=== PATIENT | male | born 1945 | race African-American/Black ===

== ENCOUNTER 2023-09-30 12:36 | Emergency (ER) | payer OTHER, MEDICAID ==
[~2023-09-30] VITALS: Ht 175.3 cm; Wt 90.7 kg
[2023-09-30 13:15] VITALS: BP 157/85; PULSE 64; RESP 18; TEMP 98; O2SAT 98
[2023-09-30 14:00] VITALS: O2SAT 99
[2023-09-30 15:03] LABS: HEMATOCRIT 34.7 % (36-52); HEMOGLOBIN 11.6 g/dL (12.0-18.0); MEAN CORPUSCULAR HEMOGLOBIN 27 pg (27-31); MEAN CORPUSCULAR HGB CONC 34 g/dL (33-37); MEAN CORPUSCULAR VOLUME 79.8 fL (80-94); PLATELET COUNT (AUTO) 34 K/uL (140-450); RED BLOOD CELL COUNT(AUTO) 4.35 MIL/uL (4.20-6.10); RED CELL DISTRIBUTION WIDTH 15.7 % (11.6-13.7)
[2023-09-30 15:10] LABS: INR 1.37 (0.8-1.2); PROTHROMBIN TIME 14.2 secs (10.8-13.4)
[2023-09-30 15:23] LABS: LYMPHOCYTES % (MANUAL) 21 % (20-46); MONOCYTES % (MANUAL) 34 % (5-12); PLATELET ESTIMATE DECREASED
[2023-09-30 15:39] LABS: ANION GAP 8.7 (8-16); CALCIUM 8.4 mg/dL (8.5-10.1); CARBON DIOXIDE 24.5 mmol/L (21-32); CHLORIDE 104 mmol/L (98-107); GLUCOSE 104 mg/dL (74-106); POTASSIUM 4.2 mmol/L (3.5-5.1); SODIUM SERUM 133 mmol/L (136-145); UREA NITROGEN, BLOOD 15 mg/dL (7-18)
[2023-09-30 17:47] VITALS: BP 157/89; PULSE 67; RESP 19; TEMP 98; O2SAT 99
== END 2023-09-30 17:47 | disposition home or self-care (01) ==
LOC: MED 12:36
DX: D69.6 Thrombocytopenia, unspecified (principal); D64.9 Anemia, unspecified; J44.9 Chronic obstructive pulmonary disease, unspecified; I10 Essential (primary) hypertension; F20.9 Schizophrenia, unspecified
CPT/HCPCS: 36415; 80048; 85025; 85610; 86886; 86900; 86901; 99283

== ENCOUNTER 2024-05-10 12:44 | Inpatient (IN) | payer OTHER, MEDICAID ==
[~2024-05-10] VITALS: Ht 180.3 cm; Wt 88.0 kg
[2024-05-10 12:48] VITALS: BP 158/76; PULSE 51; RESP 15; TEMP 97; O2SAT 96
--- NOTE | 2024-05-10 12:48 | NUR ---
PT BIBA TO BED 1. DR MONTAGUE PT
--- NOTE | 2024-05-10 13:38 | NUR ---
CONTINUEATION OF CARE AT THIS POINT, REPORT RECEIVED FROM GOYO GRIFFIN.
--- NOTE | 2024-05-10 13:39 | NUR ---
79YO M COTY FROM [facility] FOR EVALUATION OF BILATERAL LEG SWELLING X 3DAYS. PT STATES HE PLACED A BANDAGE TO LEFT LOWER LEG AND WORSENED W/DRAINAGE LAST NIGHT. DR MONTAGUE SENT PT FOR EVAL. PT DENIES FEVER, CHILLS, N, V, D, SOB, CP, URINARY SYMPTOMS. AOX4, AMBULATES WITH CANE, VSS, HR 51, BILAT LUNG CLR, OPEN SORE TO LEFT LOWER LEG/FOOT. NAD, SAFETY MAINTAINED, CALL LIGHT IN REACH. HX: HTN NKA Addendum: 05/10/24 at 1450 by [email or web address] HX: HTN, COPD, SCHIZOPHRENIA, ANEMIA
[2024-05-10 13:45] VITALS: O2SAT 99
[2024-05-10] MEDS ORDERED: ceFAZolin 1,000 MG VIAL ONE (14:02)
[2024-05-10 14:03] LABS: HEMATOCRIT 33.7 % (36-52); HEMOGLOBIN 11.1 g/dL (12.0-18.0); MEAN CORPUSCULAR HEMOGLOBIN 27 pg (27-31); MEAN CORPUSCULAR HGB CONC 33 g/dL (33-37); MEAN CORPUSCULAR VOLUME 82.7 fL (80-94); PLATELET COUNT (AUTO) 36 K/uL (140-450); RED BLOOD CELL COUNT(AUTO) 4.08 MIL/uL (4.20-6.10); RED CELL DISTRIBUTION WIDTH 17.1 % (11.6-13.7); WHITE BLOOD COUNT (AUTO) 9.4 K/uL (4.8-10.8)
[2024-05-10 14:11] LABS: ANION GAP 11.4 (8-16); CHLORIDE 103 mmol/L (98-107); GLUCOSE 114 mg/dL (74-106); POTASSIUM 4.4 mmol/L (3.5-5.1); SODIUM SERUM 133 mmol/L (136-145); UREA NITROGEN, BLOOD 20 mg/dL (7-18)
[2024-05-10 14:18] LABS: INR 1.3 (0.8-1.2); PARTIAL THROMBOPLASTIN TIME 29.8 secs (22-35.6); PROTHROMBIN TIME 13.4 secs (10.8-13.4)
--- NOTE | 2024-05-10 14:18 | NUR ---
X-RAY AT BEDSIDE
[2024-05-10 14:19] LABS: LACTIC ACID 1.8 mmol/L (0.4-2.0)
[2024-05-10 14:20] LABS: ALANINE AMINOTRANSFERASE 60 U/L (12-78); ALBUMIN 2.7 g/dL (3.4-5.0); ALKALINE PHOSPHATASE 102 U/L (50-136); ASPARTATE AMINOTRANSFERASE 64 U/L (15-37); BILIRUBIN,DIRECT 0.8 mg/dL (0.0-0.3); TOTAL BILIRUBIN 1.3 mg/dL (0.0-1.0); TOTAL PROTEIN, SERUM 7.5 g/dL (6.4-8.2)
[2024-05-10 14:33] LABS: LYMPHOCYTES % (MANUAL) 20 % (20-46); METAMYELOCYTES % 2 % (0-0); MONOCYTES % (MANUAL) 18 % (5-12); PLATELET ESTIMATE DECREASED
[2024-05-10 14:34] LABS: ANISOCYTOSIS 1+; OVALOCYTES 1+; POIKILOCYTOSIS 1+; TARGET CELLS 1+; TEAR DROP CELLS 1+
[2024-05-10 15:23] LABS: APPEARANCE,URINE CLEAR (CLEAR); BILIRUBIN,URINE NEGATIVE (NEGATIVE); BLOOD, URINE NEGATIVE (NEGATIVE); COLOR,URINE YELLOW (YELLOW); LEUKOCYTE ESTERASE ,URINE NEGATIVE (NEGATIVE); NITRITE, URINE NEGATIVE (NEGATIVE); PROTEIN,URINE NEGATIVE (NEGATIVE); UGLUCOSE NEGATIVE (NEGATIVE)
[2024-05-10] MEDS ORDERED: HYDROcodone/APAP 7.5/325 MG 1 TAB PO PRN (15:50)
[2024-05-10] MEDS ORDERED: VANCOMYCIN PER PHARMACY MC PRN (15:50)
[2024-05-10] MEDS ORDERED: ONDANSETRON 4 MG/2 ML VIAL IVP PRN (15:50)
[2024-05-10] MEDS ORDERED: ACETAMINOPHEN 325 MG TAB PO PRN (15:50)
[2024-05-10] MEDS ORDERED: POTASSIUM CHLORIDE 10 MEQ TABER PO PRN (15:50)
[2024-05-10] MEDS ORDERED: IBUP-2217 PO (15:52)
[2024-05-10] MEDS ORDERED: DOCU-3 PO (15:52)
[2024-05-10] MEDS ORDERED: GEMF-65 PO (15:52)
[2024-05-10] MEDS ORDERED: ARIP15TA43 PO (15:52)
[2024-05-10] MEDS ORDERED: ATEN50TA2 PO (15:52)
[2024-05-10] MEDS ORDERED: OMEP40EC23 PO (15:52)
[2024-05-10] MEDS ORDERED: FERR325E14 PO (15:52)
[2024-05-10] MEDS ORDERED: FURO20TA8 PO (15:52)
[2024-05-10] MEDS ORDERED: AMLO-3 PO (15:52)
[2024-05-10] MEDS ORDERED: MELO-176 PO (15:52)
[2024-05-10] MEDS ORDERED: ESCI5TAB18 PO (15:52)
[2024-05-10] MEDS ORDERED: [UNRECOGNIZED DRUG - CODE] PO (15:52)
[2024-05-10] MEDS ORDERED: DICL100G32 TP (15:52)
[2024-05-10] MEDS ORDERED: TAMS0.4C97 PO (15:52)
[2024-05-10] MEDS: NACL 0.9% 1,000 ML IV SCH (15:54)
[2024-05-10 16:09] VITALS: O2SAT 100
--- NOTE | 2024-05-10 16:10 | NUR ---
NO CHANGE IN CONDITION, PT APPEARS TO BE SLEEPING IN COMFORTABLE POSITION, ON HOUSEKEEPING DIRECTOR, NAD, SAFETY MAINTAINED, CALL LIGHT IN REACH.
--- NOTE | 2024-05-10 16:45 | NUR ---
REPORT CALLED TO YUE DÍAZ.
--- NOTE | 2024-05-10 17:10 | NUR ---
PHOTOS TAKEN AND ATTACHED TO ADMIT CHART.
--- NOTE | 2024-05-10 17:17 | NUR ---
Chart checked and completed. The patient's care was reviewed and supervised by KEILA SCHMITZ RN.
--- NOTE | 2024-05-10 17:17 | NUR ---
Patient will be admitted to care of SALLY MONTAGUE. Admited to MED/SURG. Will go to room 125B. Belongings list completed. Report to YUE DÍAZ.
[2024-05-10 17:29] LABS: INR 1.23 (0.8-1.2); PARTIAL THROMBOPLASTIN TIME 30.9 secs (22-35.6); PROTHROMBIN TIME 12.8 secs (10.8-13.4)
--- NOTE | 2024-05-10 17:30 | NUR ---
RECEIVED PT FROM ER FOR ADMISSION VIA GURNEY. UPON ADMISSION PT IS AWAKE, ALERT AND ORIENTEDX4. ON ROOM AIR, NO RESPIRATORY DISTRESS OR SOB NOTED. NO APPARENT COMPLAIN OF PAIN. VITAL SIGNS TAKEN AND WNL. PT ADMITTED D/T BILATERAL SWELLING ON LOWER LEG. MRSA SWAB TAKEN. SAFETY MEASURES IN PLACE. WILL CONTINUE TO MONITOR. CALL LIGHT KEEP WITHIN REACH
[2024-05-10 17:39] LABS: CHOL/HDL RATIO 2.6 (1-4.5); FREE T4 (FREE THYROXINE) 1.1 ng/dL (0.76-1.46); MAGNESIUM 1.7 mg/dL (1.8-2.4); PHOSPHORUS 3.6 mg/dL (2.5-4.9); THYROID STIMULATING HORMONE 1.34 uIU/mL (0.34-3.74)
[2024-05-10 18:00] VITALS: PULSE 48; RESP 18; O2SAT 99
[2024-05-10] MEDS: VANCOMYCIN 1,000 MG in DEXTROSE 5% 250 ML IV SCH (18:53)
[2024-05-10] MEDS: gemfibroziL 600 MG TAB PO SCH (18:53)
--- NOTE | 2024-05-10 19:30 | NUR ---
RECEIVED REPORT FROM DAY SHIFT NURSE FOR CONTINUITY OF CARE. PT AWAKE, ALERT AND ORIENTED X 4,. ON ROOM AIR,,BREATHING EVEN AND UNLABORED. CELLULITIS ON LLE.NO S/S OF DISTRESS. DENIES PAIN AT THIS TIME. PLAN OF CARE DISCUSSED.ALL SAFETY PRECAUTIONS IN PLACE. CALL LIGHT WITHIN REACH.
--- NOTE | 2024-05-10 19:30 | NUR ---
ENDORSED PT TO HOME APPLIANCES MECHANIC NURSE FOR CONTINUITY OF CARE. PT IS RESTING IN BED. NO DISTRESS NOTED. IV VANCO RUNNING AT THIS TIME. SAFETY MEASURES IN PLACE. CALL LIGHT KEEP WITHIN REACH
[2024-05-10 20:00] VITALS: BP 143/68; PULSE 50; RESP 18; TEMP 97.1; O2SAT 98
[2024-05-10] MEDS: DOCUSATE SODIUM 100 MG GELCAP PO SCH (20:44)
[2024-05-10] MEDS: IBUPROFEN 800 MG TAB PO PRN (20:45)
[2024-05-10] MEDS: ENALAPRIL 10 MG TAB PO SCH (20:45)
[2024-05-10] MEDS: MAG SULF 2000 MG/WATER PREMIX 50 ML IV PRN (20:50)
[2024-05-10] MEDS ORDERED: DOCUSATE SODIUM 100 MG GELCAP PO SCH (21:00)
[2024-05-10] MEDS ORDERED: ENALAPRIL MALEATE PO SCH (21:00)
--- NOTE | 2024-05-10 21:30 | NUR ---
SCHEDULED MEDICATIONS GIVEN. PT TOLERATED WELL. NO DISTRESS NOTED.
--- NOTE | 2024-05-11 01:21 | NUR ---
PT ASLEEP AT THIS TIME. VISIBLE CHEST RISE AND FALL NOTED. ALL PRECAUTIONS IN PLACE. CALL LIGHT WITHIN REACH.
[2024-05-11 04:00] VITALS: BP 146/68; PULSE 47; RESP 18; TEMP 96.8; O2SAT 98
[2024-05-11 05:38] LABS: BASOPHILS # (AUTO) 0.1 K/uL (0.00-0.22); BASOPHILS % (AUTO) 0.7 % (0.0-2.0); EOSINOPHILS % (AUTO) 0.2 % (0.0-4.0); HEMATOCRIT 34.6 % (36-52); HEMOGLOBIN 11.6 g/dL (12.0-18.0); LYMPHOCYTES # (AUTO) 2.4 K/uL (2.0-11.5); LYMPHOCYTES % (AUTO) 25.8 % (20.5-51.1); MEAN CORPUSCULAR HEMOGLOBIN 27 pg (27-31); MEAN CORPUSCULAR HGB CONC 34 g/dL (33-37); MEAN CORPUSCULAR VOLUME 81.8 fL (80-94); MONOCYTES # (AUTO) 3.8 K/uL (0.8-1.0); NEUTROPHILS # (AUTO) 2.9 K/uL (1.8-7.7); NEUTROPHILS % (AUTO) 31.3 % (42.2-75.2); PLATELET COUNT (AUTO) 41 K/uL (140-450); RED BLOOD CELL COUNT(AUTO) 4.23 MIL/uL (4.20-6.10); RED CELL DISTRIBUTION WIDTH 16.9 % (11.6-13.7); WHITE BLOOD COUNT (AUTO) 9.1 K/uL (4.8-10.8)
[2024-05-11 05:53] LABS: ANION GAP 10.2 (8-16); CHLORIDE 104 mmol/L (98-107); GLUCOSE 106 mg/dL (74-106); POTASSIUM 4.2 mmol/L (3.5-5.1); SODIUM SERUM 133 mmol/L (136-145); UREA NITROGEN, BLOOD 18 mg/dL (7-18)
[2024-05-11 06:02] LABS: AMPHETAMINE, URINE NEGATIVE ng/ml (NEG <=1000); BARBITURATE, URINE NEGATIVE ng/ml (NEG <=200); BENZODIAZEPINE, URINE NEGATIVE ng/mL (NEG <=200); CANNABINOID, URINE NEGATIVE ng/mL (NEG <=50); COCAINE, URINE NEGATIVE ng/mL (NEG <=300); OPIATE, URINE NEGATIVE ng/mL (NEG <=2000); PHENCYCLIDINE SCREEN,URINE NEGATIVE ng/mL (NEG <=25)
[2024-05-11 06:08] LABS: MAGNESIUM 1.8 mg/dL (1.8-2.4); PHOSPHORUS 3.3 mg/dL (2.5-4.9)
--- NOTE | 2024-05-11 06:35 | NUR ---
PT IS STABLE. NO ACUTE EVENTS THROUGHOUT THE NIGHT. ALL NEEDS ATTENDED. NO S/S OF DISTRESS AT THIS TIME. DENIES PAIN.ALL SAFETY PRECAUTIONS IN PLACE. CALL LIGHT WITHIN REACH. WILL ENDORSE TO DAY NURSE.
--- NOTE | 2024-05-11 07:00 | NUR ---
RECEIVED PT FROM LIVING NURSE FOR CONTINUITY OF CARE. ALERT AND VERBALLY RESPONSIVE. RESP. EVEN AND UNLABORED. ON ROOM AIR. PIV TO RAC 20G. ON SALINE LOCK. SKIN INTACT. AMBULATORY. BLE EDEMA. LLE, REDNESS AND WARMTH TO TOUCH. CONTINENT TO BOWEL AND BLADDER. NO C/O PAIN OR DISCOMFORT. CALL LIGHT KEPT WITHIN REACH. CONTINUE PLAN OF CARE.
[2024-05-11 08:00] VITALS: BP 155/60; PULSE 48; RESP 18; TEMP 96.5; O2SAT 98
--- NOTE | 2024-05-11 08:00 | NUR ---
Patient's Plan of Care was discussed and reviewed with BILLING REPRESENTATIVE: ANNE MARIE
[2024-05-11] MEDS ORDERED: ARIPIPRAZOLE PO SCH (09:00)
[2024-05-11] MEDS ORDERED: NON-FORMULARY ITEM (Omeprazole* (Prilosec*) 1 CAP) PO SCH (09:00)
[2024-05-11] MEDS ORDERED: NON-FORMULARY ITEM (Escitalopram Oxalate (Escitalopram Oxalate) 1 TAB) PO SCH (09:00)
[2024-05-11] MEDS: CELECOXIB 100 MG CAP PO SCH (09:00)
[2024-05-11] MEDS ORDERED: MELOXICAM PO SCH (09:00)
--- NOTE | 2024-05-11 09:21 | NUR ---
PATIENT HAS BEEN SCREENED AND CATEGORIZED LOW NUTRITION RISK. PATIENT WILL BE SEEN WITHIN 7 DAYS OF ADMISSION. 05/17/[address]
--- NOTE | 2024-05-11 09:57 | NUR ---
WOUND CARE NOTE: PT. ADMITTED WITH STASIS ULCER TO LEFT LOWER LATERAL AND MEDIAL LEG, PARTIAL THICKNESS SKIN LOSS 1X6X0.1CM WOUND BED RED, MOIST, NO ODOR, MARISELA-WOUND SKIN INTACT, ,PAIN 0/10. POC DISCUSSED WITH PT. PT IS AAX4 AND PER PT. HE IS ABLE TO DO DRESSING CHANGE. CH AT BEDSIDE AND CONFIRM PT. [facility] IS HELP AT FACILITY. POC DISCUSSED WITH DR. MONTAGUE AT BEDSIDE. RECOMMENDATIONS: -BLE ELEVATED WITH 2 PILLOWS HIGH WHEN IN BED -CLEANSE RIGHT LE WOUND WITH NS, PAT DRY, APPLY SILVASORB GEL WITH OIL EMULSION DRESSING, COVER WITH DRY DRESSING WRAP WITH KERLIX ROLL AND SECURE WITH TAPE QD AND PRN IF SOILING.
[2024-05-11] MEDS: PANTOPRAZOLE 40 MG INJ VIAL IVP SCH (10:05)
[2024-05-11] MEDS: atenoloL 50 MG TAB PO SCH (10:06)
[2024-05-11] MEDS: ESCITALOPRAM 5 MG TAB PO SCH (10:07)
[2024-05-11] MEDS: LACTULOSE 20 GM/30 ML UDC PO SCH (10:08)
[2024-05-11] MEDS: amLODIPine 5 MG TAB PO SCH (10:08)
[2024-05-11] MEDS: FUROSEMIDE 20 MG TAB PO SCH (10:08)
[2024-05-11] MEDS: ARIPiprazole 10 MG TAB PO SCH (10:09)
[2024-05-11] MEDS: TAMSULOSIN 0.4 MG CAP PO SCH (10:09)
--- NOTE | 2024-05-11 10:09 | NUR ---
SCHEDULED MEDICATIONS GIVEN. TOLERATED WELL.
[2024-05-11 12:00] VITALS: BP 146/71; PULSE 46; RESP 18; TEMP 97.1; O2SAT 98
[2024-05-11] MEDS ORDERED: NON ADHERENT DRESSING TP PRN (14:10)
--- NOTE | 2024-05-11 15:04 | NUR ---
Report received from ARJUN Raphael for continuity of care. Patient stable condition.
--- NOTE | 2024-05-11 16:54 | NUR ---
Spoke with Andrea, nuclear medicine, regarding bone scan in 5:30 am and later 12 hours 5-6 pm. Andrea asking for good working IV for contrast injection dye. Patient aware of situation.
--- NOTE | 2024-05-11 19:09 | NUR ---
Report given to cnc machinist 2nd shift nurse for continuity of care. Patient stable condition. No distress noted.
--- NOTE | 2024-05-11 19:10 | NUR ---
RECEIVED REPORT FROM DAY SHIFT NURSE FOR CONTINUITY OF CARE. PT AWAKE, ALERT AND ORIENTED X 4,. ON ROOM AIR,,BREATHING EVEN AND UNLABORED..NO S/S OF DISTRESS. DENIES PAIN AT THIS TIME. PLAN OF CARE DISCUSSED.ALL SAFETY PRECAUTIONS IN PLACE. CALL LIGHT WITHIN REACH.
[2024-05-11 20:00] VITALS: BP 141/69; PULSE 50; RESP 18; TEMP 96.7; O2SAT 98
--- NOTE | 2024-05-11 21:40 | NUR ---
SCHEDULED MEDICATIONS GIVEN. PT TOLERATED WELL. NO DISTRESS NOTED.
--- NOTE | 2024-05-12 01:22 | NUR ---
PT ASLEEP AT THIS TIME. VISIBLE CHEST RISE AND FALL NOTED. ALL PRECAUTIONS IN PLACE. CALL LIGHT WITHIN REACH.
[2024-05-12 05:38] LABS: BASOPHILS % (AUTO) 0.3 % (0.0-2.0); EOSINOPHILS % (AUTO) 0.2 % (0.0-4.0); HEMATOCRIT 34.5 % (36-52); HEMOGLOBIN 11.6 g/dL (12.0-18.0); LYMPHOCYTES # (AUTO) 2.1 K/uL (2.0-11.5); LYMPHOCYTES % (AUTO) 26.1 % (20.5-51.1); MEAN CORPUSCULAR HEMOGLOBIN 27 pg (27-31); MEAN CORPUSCULAR HGB CONC 34 g/dL (33-37); MEAN CORPUSCULAR VOLUME 81.7 fL (80-94); MONOCYTES % (AUTO) 38.2 % (1.7-9.3); NEUTROPHILS # (AUTO) 2.8 K/uL (1.8-7.7); NEUTROPHILS % (AUTO) 35.2 % (42.2-75.2); PLATELET COUNT (AUTO) 32 K/uL (140-450); RED BLOOD CELL COUNT(AUTO) 4.22 MIL/uL (4.20-6.10); RED CELL DISTRIBUTION WIDTH 16.8 % (11.6-13.7)
[2024-05-12 06:06] LABS: MAGNESIUM 1.4 mg/dL (1.8-2.4); PHOSPHORUS 3.3 mg/dL (2.5-4.9)
[2024-05-12 06:08] LABS: ANION GAP 12.6 (8-16); CALCIUM 8.7 mg/dL (8.5-10.1); CARBON DIOXIDE 22.7 mmol/L (21-32); CHLORIDE 104 mmol/L (98-107); CREATININE 0.9 mg/dL (0.6-1.3); GLUCOSE 96 mg/dL (74-106); POTASSIUM 4.3 mmol/L (3.5-5.1); SODIUM SERUM 135 mmol/L (136-145); UREA NITROGEN, BLOOD 16 mg/dL (7-18)
--- NOTE | 2024-05-12 07:29 | NUR ---
PT IS STABLE. NO ACUTE EVENTS THROUGHOUT THE NIGHT. ALL NEEDS ATTENDED. NO S/S OF DISTRESS AT THIS TIME. DENIES PAIN.ALL SAFETY PRECAUTIONS IN PLACE. CALL LIGHT WITHIN REACH. WILL ENDORSED TO DAY NURSE.
[2024-05-12 08:00] VITALS: BP 136/72; PULSE 48; PULSE 50; RESP 18; RESP 20; TEMP 97.2; O2SAT 97; O2SAT 98
--- NOTE | 2024-05-12 10:00 | NUR ---
Per nurse report: CT Angio for tdoay, HD patient, with possible DC plan tomorrow. No new orders for CM at this time.
[2024-05-12 10:06] LABS: HEPATITIS A ANTIBODY IGM Negative (Negative); HEPATITIS A ANTIBODY TOTAL Negative (Negative); HEPATITIS B CORE AB TOTAL Negative (Negative); HEPATITIS B CORE, IGM Negative (Negative); HEPATITIS B SURFACE ANTIBODY Non Reactive (.); HEPATITIS B SURFACE ANTIGEN Negative (Negative)
[2024-05-12 12:08] LABS: FOLIC ACID 15.5 ng/mL (>3.0)
--- NOTE | 2024-05-12 13:08 | NUR ---
SW ASSESSMENT Addendum: 05/12/24 at 1309 by Kristian OBRIEN Amended: Links added.
[2024-05-12] MEDS: NON ADHERENT DRESSING TP SCH (13:42)
[2024-05-12 14:51] LABS: HEPATITIS C VIRUS ANTIBODY POSITIVE s/co rat (0.00 - 0.9)
[2024-05-12 16:00] VITALS: BP 134/76; PULSE 68; RESP 20; TEMP 98.1; O2SAT 99
--- NOTE | 2024-05-12 19:40 | NUR ---
PATIENTS IV WAS DISCONNECTED AND HE WAS TAKEN TO RADIOLOGY
--- NOTE | 2024-05-12 19:49 | NUR ---
Report given to athletic shoe designer nurse for continuity of care. Patient stable condition.
--- NOTE | 2024-05-12 19:50 | NUR ---
Dr. Nagel wants patient echocardiogram to r/o endocarditis. Dr. Marisol Sepulveda to be consulted to read.
--- NOTE | 2024-05-12 19:50 | NUR ---
RECEIVED REPORT PATIENT FROM DAY SHIFT NURSE CORA FOR CONTINUITY OF CARE. PATIENT IS AWAKE, ALERT, ORIENTED X4 ON ROOM AIR, BREATHING IS EVEN AND UNLABORED, NO S/SX OF DISTRESS, PATIENT HAS RIGHT AC 20G , NORMAL SALINE AT 50ML/HR. LEFT LEG CELLULITIS. PATIENT IS AMBULATORY AND ABLE TO VERBALIZE HIS NEEDS. ALL SAFETY MEASURES IN PLACE, BED IN LOW POSITION, X2 BED SIDE RAILS UP, CALL LIGHT WITHIN REACH.
--- NOTE | 2024-05-12 20:25 | NUR ---
PATIENT RETURNED FROM RADIOLOGY AND RECONNECTED TO IV. PATIENT RETUNED IN STABLE CONDITION.
[2024-05-12 21:00] VITALS: PULSE 60; RESP 18; O2SAT 98
--- NOTE | 2024-05-12 21:00 | NUR ---
SCHEDULED AND PRESCRIBED MEDICATION WAS GIVEN TO PATIENT PER MD ORDERS. PATIENT TOLERATED WELL.
--- NOTE | 2024-05-12 21:40 | NUR ---
Patient's Plan of Care was discussed and reviewed with LACQUER SHADER: CATARINO HINOJOSA
--- NOTE | 2024-05-13 | NUR ---
MAKING NURSING ROUNDS, PATIENT IS CURRENTLY SLEEPING BREATHING EVEN AND UNLABORED NO S/SX OF DISTRESS. IV FLUIDS CONTINUE TO BE INFUSING AT THIS TIME. SAFETY MEASURES IN PLACE, BED IN LOW POSITION, CALL LIGHT WITHIN REACH. WILL CONTINUE TO MAKE NURSING ROUNDS TO ANTICIPATE PATIENTS NEEDS.
[2024-05-13 04:00] VITALS: BP 145/72; PULSE 59; RESP 18; TEMP 97; O2SAT 99
--- NOTE | 2024-05-13 04:00 | NUR ---
MAKING NURSING ROUNDS. PATIENT CONTINUES TO SLEEP COMFORTABLY IN BED FOR MAJORITY OF SHIFT BREATHING EVEN AND UNLABORED. IV FLUIDS CONTINUE TO BE INFUSING AT THIS TIME. ALL SAFETY MEASURES IN PLACE, BED IN LOW POSITION, CALL LIGHT WITHIN REACH.
[2024-05-13 05:47] LABS: ANION GAP 11.9 (8-16); CALCIUM 8.8 mg/dL (8.5-10.1); CARBON DIOXIDE 23.3 mmol/L (21-32); CHLORIDE 103 mmol/L (98-107); CREATININE 0.9 mg/dL (0.6-1.3); GLUCOSE 94 mg/dL (74-106); POTASSIUM 4.2 mmol/L (3.5-5.1); SODIUM SERUM 134 mmol/L (136-145); UREA NITROGEN, BLOOD 13 mg/dL (7-18)
[2024-05-13 05:50] LABS: BASOPHILS % (AUTO) 0.6 % (0.0-2.0); EOSINOPHILS % (AUTO) 0.2 % (0.0-4.0); HEMATOCRIT 36.3 % (36-52); HEMOGLOBIN 12.3 g/dL (12.0-18.0); LYMPHOCYTES # (AUTO) 2.2 K/uL (2.0-11.5); LYMPHOCYTES % (AUTO) 28.6 % (20.5-51.1); MEAN CORPUSCULAR HEMOGLOBIN 28 pg (27-31); MEAN CORPUSCULAR HGB CONC 34 g/dL (33-37); MEAN CORPUSCULAR VOLUME 81.9 fL (80-94); MONOCYTES # (AUTO) 2.9 K/uL (0.8-1.0); MONOCYTES % (AUTO) 37.1 % (1.7-9.3); NEUTROPHILS # (AUTO) 2.6 K/uL (1.8-7.7); NEUTROPHILS % (AUTO) 33.5 % (42.2-75.2); PLATELET COUNT (AUTO) 31 K/uL (140-450); RED BLOOD CELL COUNT(AUTO) 4.44 MIL/uL (4.20-6.10); RED CELL DISTRIBUTION WIDTH 16.6 % (11.6-13.7); WHITE BLOOD COUNT (AUTO) 7.7 K/uL (4.8-10.8)
[2024-05-13 06:26] LABS: MAGNESIUM 1.7 mg/dL (1.8-2.4); PHOSPHORUS 3.1 mg/dL (2.5-4.9)
--- NOTE | 2024-05-13 07:17 | NUR ---
ENDORSED PATIENT IN STABLE CONDITION TO MORNING SHIFT NURSE JOSE FOR CONTINUITY OF CARE.
--- NOTE | 2024-05-13 07:20 | NUR ---
RECEIVED REPORT FROM [facility] NURSE AND ASSUMED CARE OF 79 Y/O MALE WITH DX OF LLE CELLULITIS. PT IS A/A/O X4. ABLE TO VERBALIZE NEEDS. SKIN WARM TO TOUCH, RESPIRATIONS EVEN AND UNLABORED. ABD SOFT AND MILDLY DISTENDED. PATIENT HAS HX OF CIRRHOSIS AND HEPATIC ENCEPHALOPATHY. CONTINUES ON LACTULOSE AND AMMONIA LEVEL MONITORING. PT IS ON CARDIAC DIET. AMBULATORY AND CONTINENT OF BOWEL AND BLADDER. URINAL AT BEDSIDE. PERIPHERAL LINE NOTED ON RAC 20G RUNNING NS @ 50 MLS/HR. WOUND NOTED ON LLE/LEFT FOOT. DRY DRESSING INTACT. BED IN LOW POSITION. CALL LIGHT WITHIN REACH. WILL CONTINUE TO MONITOR.
[2024-05-13 08:00] VITALS: BP 152/68; PULSE 55; PULSE 72; RESP 18; RESP 20; TEMP 97.3; O2SAT 100; O2SAT 98
--- NOTE | 2024-05-13 11:53 | NUR ---
RECEIVED IV ABX ORDER FOR PATIENT TO GO TO SNF. WENT AND SPOKE WITH PATIENT REGARDING IV ABX AT SNF. HE STATED HE HAS NEVER BEEN TO ONE BEFORE AND WANT TO GO TO A SNF WHERE THE FOLLOWS. FAXED ALL CLINICALS TO [facility] [phone] OLIVIA ORDAZ [phone] AND [facility] [phone]. WILL FOLLOW UP WITH UPDATES Addendum: 05/13/24 at 1428 by MACK YORK CM RECEIVED CALL FROM [facility] THAT THEY DONT HAVE ANY MALE BEDS AT THE MOMENT. RECEIVED CALL FROM ELTON FROM [facility] WHO CAN ACCOMMODATE BED FOR PATIENT WHEN READY TO DC. Addendum: 05/13/24 at 1431 by MACK YORK RECEIVED CALL FROM ELTON AT [facility] [phone] LOCATED AT [address] [place] [address]. PATIENT WILL GO TO ROOM 110B UNDER DR MONTAGUE. TRANSPORT CAN BE RANGED WITH [facility] CALL THE [facility] [phone]. IF THERE ARE ANY PROBLEMS PLEASE CALL ELTON AT [phone] FOR ANY PROBLEM AND PLEASE FAX UPDATED CLINICALS FOR PATIENT TO [facility] AT [phone].
--- NOTE | 2024-05-13 14:15 | NUR ---
WOUND CARE RENDERED, TOLERATED WELL.
[2024-05-13 16:00] VITALS: BP 119/66; PULSE 69; RESP 18; TEMP 97.4; O2SAT 98
--- NOTE | 2024-05-13 19:20 | NUR ---
BEDSIDE REPORT GIVEN TO NOC NURSE FOR CONTINUITY OF CARE.
--- NOTE | 2024-05-13 19:30 | NUR ---
RECEIVED REPORT FROM DAY SHIFT NURSE JOSE FOR CONTINUITY OF CARE. PATIENT IS AWAKE, ORIENTED X4 ON ROOM AIR, BREATHING IS EVEN AND UNLABORED, NO S/SX OF DISTRESS. PATIENT IS ABLE TO VERBALIZE NEEDS. PATIENT IS ABLE TO AMBULATE WITHOUT ASSISTANCE, URINAL AT BEDSIDE AND ADVISED TO USE FOR REMAINDER OF SHIFT. RIGHT AC 20G, NORMAL SALINE @50ML/HR, . ALL SAFETY MEASURES IN PLACE,BED IN LOW POSITION, X2 SIDE RAILS UP, CALL LIGHT WITHIN REACH.
[2024-05-13 20:12] VITALS: PULSE 68; RESP 14; O2SAT 98
--- NOTE | 2024-05-13 21:00 | NUR ---
SCHEDULED AND PRESCRIBED MEDICATION WAS GIVEN PER MD ORDERS.
--- NOTE | 2024-05-14 | NUR ---
MAKING NURSING ROUNDS. PATIENT IS SLEEPING, CHEST RISING AND FALLING ADEQUATELY NO S/SX OF DISTRESS. IV FLUIDS CONTINUE TO BE INFUSING AT THIS TIME. SAFETY MEASURES IN PLACE, BED IN LOW POSITION, CALL LIGHT WITH IN REACH. WILL CONTINUE TO MAKE NURSING ROUNDS TO ANTICIPATE PATIENTS NEEDS.
[2024-05-14 04:00] VITALS: BP 132/71; PULSE 52; RESP 17; TEMP 97.2; O2SAT 97
--- NOTE | 2024-05-14 04:00 | NUR ---
PATIENT CONTINUES TO SLEEP COMFORTABLY IN BED FOR MAJORITY OF SHIFT CHEST RISING AND FALLING ADEQUATELY NO S/SX OF DISTRESS. IV FLUIDS CONTINUE TO BE INFUSING AT THIS TIME. ALL SAFETY MEASURES IN PLACE, BED IN LOW POSITION, CALL LIGHT WITHIN REACH.
--- NOTE | 2024-05-14 07:24 | NUR ---
PATIENT ENDORSED IN STABLE CONDITION TO MORNING SHIFT NURSE JOSE FOR CONTINUITY OF CARE.
--- NOTE | 2024-05-14 07:25 | NUR ---
RECEIVED REPORT FROM [facility] NURSE AND ASSUMED CARE OF 79 Y/O MALE WITH DX OF LLE CELLULITIS. PT IS A/A/O X4. ABLE TO VERBALIZE NEEDS. SKIN WARM TO TOUCH, RESPIRATIONS EVEN AND UNLABORED. ABD SOFT AND DISTENDED. PATIENT HAS HX OF CIRRHOSIS AND HEPATIC ENCEPHALOPATHY. CONTINUES ON LACTULOSE AND AMMONIA LEVEL MONITORING. PT IS ON CARDIAC DIET. AMBULATORY AND CONTINENT OF BOWEL AND BLADDER. URINAL AT BEDSIDE. PERIPHERAL LINE NOTED ON RAC 20G RUNNING NS @ 50 MLS/HR. WOUND NOTED ON LLE/LEFT FOOT. DRY DRESSING INTACT. BED IN LOW POSITION. CALL LIGHT WITHIN REACH. WILL CONTINUE TO MONITOR.
[2024-05-14 07:32] LABS: ANION GAP 12.3 (8-16); CALCIUM 8.2 mg/dL (8.5-10.1); CARBON DIOXIDE 21.8 mmol/L (21-32); CHLORIDE 104 mmol/L (98-107); CREATININE 0.9 mg/dL (0.6-1.3); GLUCOSE 93 mg/dL (74-106); POTASSIUM 4.1 mmol/L (3.5-5.1); SODIUM SERUM 134 mmol/L (136-145); UREA NITROGEN, BLOOD 13 mg/dL (7-18)
[2024-05-14 07:34] LABS: BASOPHILS % (AUTO) 0.7 % (0.0-2.0); EOSINOPHILS % (AUTO) 0.2 % (0.0-4.0); HEMATOCRIT 34.4 % (36-52); HEMOGLOBIN 11.6 g/dL (12.0-18.0); LYMPHOCYTES # (AUTO) 1.8 K/uL (2.0-11.5); LYMPHOCYTES % (AUTO) 25.7 % (20.5-51.1); MEAN CORPUSCULAR HEMOGLOBIN 28 pg (27-31); MEAN CORPUSCULAR HGB CONC 34 g/dL (33-37); MEAN CORPUSCULAR VOLUME 81.2 fL (80-94); MONOCYTES # (AUTO) 2.6 K/uL (0.8-1.0); MONOCYTES % (AUTO) 37.8 % (1.7-9.3); NEUTROPHILS # (AUTO) 2.5 K/uL (1.8-7.7); NEUTROPHILS % (AUTO) 35.6 % (42.2-75.2); PLATELET COUNT (AUTO) 29 K/uL (140-450); RED BLOOD CELL COUNT(AUTO) 4.23 MIL/uL (4.20-6.10); RED CELL DISTRIBUTION WIDTH 16.2 % (11.6-13.7)
[2024-05-14 08:00] VITALS: BP 154/79; PULSE 52; RESP 17; TEMP 97.1; O2SAT 96
[2024-05-14 08:20] LABS: MAGNESIUM 1.5 mg/dL (1.8-2.4); PHOSPHORUS 3.1 mg/dL (2.5-4.9)
--- NOTE | 2024-05-14 09:30 | NUR ---
BREAKFAST AND MORNING MEDICATIONS TOLERATED WELL. NO C/O PAIN OR DISCOMFORT NOTED. BED IN LOW POSITION WITH CALL LIGHT IN REACH.
[2024-05-14] MEDS ORDERED: ENAL10TA51 PO (12:57)
[2024-05-14] MEDS ORDERED: VANC1PLA7 IV (12:57)
[2024-05-14] MEDS ORDERED: LACT10SO11 PO (12:57)
[2024-05-14] MEDS ORDERED: ABI10 PO (12:57)
--- NOTE | 2024-05-14 14:48 | NUR ---
BONE SCAN REPORT IN, PLACED CALL TO DR. MONTAGUE TO MAKE AWARE. PER DR MONTAGUE, PLEASE INFORM PODIATRY DR. ALVARADO.
--- NOTE | 2024-05-14 14:50 | NUR ---
PLACED CALL TO DR ALVARADO MADE AWARE OF BONE SCAN RESULT, PER DR ALVARADO, PATIENT IS GOOD TO GO AND F/U OUTPATIENT OKAY. PLACED CALL BACK TO DR. MONTAGUE TO MAKE AWARE.
--- NOTE | 2024-05-14 14:56 | NUR ---
RECEIVED CALL BACK FROM DR MONTAGUE, STATED PATIENT WILL DC WITH 6 WKS OF IV ATB JOYCE.
--- NOTE | 2024-05-14 14:59 | NUR ---
PLACED CALL TO [facility] [employer] [facility] TO MAKE AWARE THAT PATIENT HAS NEW ORDER FOR MID LINE INSERTION.
[2024-05-14 16:00] VITALS: BP 149/80; PULSE 64; RESP 17; TEMP 97.3; O2SAT 97
--- NOTE | 2024-05-14 17:15 | NUR ---
RECEIVED CALL FROM [facility] SERVICE WILIAN COLEMAN, ASKED IF CONSENT HAS BEEN SIGNED AND ASKED IF ALL SUPPLIES CAN BE READY FOR HIM FOR WHEN HE GETS HERE. NO ETA GIVEN, STATED HE WILL CALL BACK WHEN HE IS 30 MINUTES AWAY.
--- NOTE | 2024-05-14 18:40 | NUR ---
PLACED CALL TO DR MONTAGUE TO MAKE AWARE THAT MID LINE NURSE HAS NOT SHOWN UP YET. DC LIKELY TOMORROW BECAUSE TRANSPO STILL NEEDS TO BE ARRANGED. PER DR MONTAGUE SHE WILL CALL [facility] NOW. HE NEEDS TO DC TONIGHT.
[2024-05-14 18:44] VITALS: BP 149/80; PULSE 64; RESP 17; TEMP 97.3
--- NOTE | 2024-05-14 18:45 | NUR ---
RECEIVED CALL BACK FROM DR MONTAGUE STATED [facility] WILL PAY PRIVATE TRANSPORTATION. MADE AWARE THAT MIDLINE NURSE ETA IS ANY MINUTE. PER DR MONTAGUE, TRANSPORTATION WILL ARRIVE AT 8PM. PATIENT MADE AWARE.
--- NOTE | 2024-05-14 18:55 | NUR ---
MIDLINE NURSE IS HERE NOW TO INSERT MIDLINE.
--- NOTE | 2024-05-14 19:00 | NUR ---
PLACED CALL TO [facility] J[facility], REPORT GIVEN TO GERALD.
--- NOTE | 2024-05-14 19:25 | NUR ---
BEDSIDE REPORT GIVEN TO [facility] SHIFT NURSE FOR CONTINUITY OF CARE. ALL DISCHARGE PAPERWORK SIGNED AND READY TO GO, HANDED OVER TO [facility] NURSE WITH TRANSFER INFORMATION.
--- NOTE | 2024-05-14 19:30 | NUR ---
RECD. SITTING ON BED, WAITING FOR TRANSPORT TO TAKE HIM TO [facility]. PATIENT HAD ALREADY SIGNED ALL DISCHARGE PAPERS. VS STABLE. T- 97.8, RR- 18, BP - 125/77, 02 SAT - 98% ON ROOM AIR. DENIES PAIN 0/10.
--- NOTE | 2024-05-14 19:55 | NUR ---
TAKEN TO HOSPITAL LOBBY PARKING VIA GURNEY IN STABLE CONDITION BY TRANSPORT PERSONNEL FOR TRANSFER TO [facility]. NURSE STUCCO APPLICATOR FRANCISCO ESPINOSA.
== END 2024-05-14 19:55 | DRG 602 ==
LOC: MED 12:44 → MMU 15:48
DX: L03.116 Cellulitis of left lower limb (principal); E43 Unspecified severe protein-calorie malnutrition; M86.8X7 Other osteomyelitis, ankle and foot; E87.1 Hypo-osmolality and hyponatremia; L97.321 Non-pressure chronic ulcer of left ankle limited to breakdown of skin; K76.82 Hepatic encephalopathy; F20.9 Schizophrenia, unspecified; J44.9 Chronic obstructive pulmonary disease, unspecified; D69.6 Thrombocytopenia, unspecified; I73.9 Peripheral vascular disease, unspecified; I10 Essential (primary) hypertension; F17.200 Nicotine dependence, unspecified, uncomplicated; N40.0 Benign prostatic hyperplasia without lower urinary tract symptoms; E78.5 Hyperlipidemia, unspecified; F32.9 Major depressive disorder, single episode, unspecified; I25.10 Atherosclerotic heart disease of native coronary artery without angina pectoris; E83.42 Hypomagnesemia; K74.60 Unspecified cirrhosis of liver; Z68.27 Body mass index [BMI] 27.0-27.9, adult; Z79.84 Long term (current) use of oral hypoglycemic drugs; Z79.899 Other long term (current) drug therapy
CPT/HCPCS: 36415; 71045; 73600; 73630; 76705; 78315; 80048; 80076; 80202; 80305; 81003; 82140; 82150; 82607; 82728; 82746; 83036; 83540; 83605; 83690; 83735; 83880; 84100; 84439; 84443; 84484; 85025; 85045; 85610; 85651; 85730; 86140; 86704; 86706; 86708; 86709; 86803; 87040; 87081; 87086; 87340; 93005; 93925; 93970; 96365; 97116; 97163-GP; 97530; 99285; J0690; J2470; J3370; J3475; J7060; Q0092; Q9967